=== PATIENT | female | born 1980 | race Hispanic/Latino ===

== ENCOUNTER 2024-08-06 16:33 | Emergency (ER) | payer MEDICAID, OTHER ==
[~2024-08-06] VITALS: Ht 160 cm; Wt 83.9 kg
[2024-08-06 16:36] VITALS: BP 137/91; PULSE 104; RESP 20; TEMP 97.7
== END 2024-08-06 18:12 | disposition left against medical advice (07) ==
LOC: EDH 16:33
DX: Z04.1 Encounter for examination and observation following transport accident (principal); Z53.21 Procedure and treatment not carried out due to patient leaving prior to being seen by health care provider